=== PATIENT | male | born 1995 | race Caucasian/White ===

== ENCOUNTER 2024-01-05 12:28 | Outpatient (AMB) | payer OTHER, SELFPAY ==
--- NOTE | 2024-01-05 12:30 | MHC.PC.OV ---
Vital Signs 01/05/24 12:37 Height 5 ft 10 in Weight 197 lb BMI 28.3 BP 118/70 Blood Pressure Location Rt brachial Position Sitting Pulse 63 Pulse Source Pulse Oximeter Pulse Oximetry (%) 97 Oxygen Delivery Method Room Air Intake Visit Reasons: [employer] Request PE Intake Note: pt is here for new patient, requesting PE [facility] Vat Worker Required: No Accompanied by: Self / Same As Patient Allergies No Known Allergies [No Known Allergies*] Allergy (Verified 01/05/24 12:31) Tobacco use date assessed: 01/05/24 Dental Screening Dental Screen Date: 01/05/24 Did you have a dental visit in the last 12 months?: Yes Did you have a dental problem in the last 6 months where you did not have access to dental care?: No Was dental information given to patient?: Patient has dentist HPI [employer] Request PE HPI Details New pt is here for a PE. Will order labs. [facility] Surgical History No pertinent past surgical history Family History Mother No problems noted. Father No problems noted. Social History Housing: Condominium Alcohol intake: current Alcohol intake frequency: a few times a week Alcohol type: beer, wine and hard liquor Patient Tobacco Use Status: Current someday Tobacco user Cigarettes Per Day: 1 e-Cigarette/Vaping Use: Never Used service: No Current occupational status: employed Current occupation: lawn care Current occupational exposures/hazards: No Cognitive needs: No Hearing needs: No Vision needs: Yes Questionnaire PHQ-9 Over the last 2 weeks, how often have you been bothered by any of the following problems? 1. Little interest or pleasure in doing things: not at all 2. Feeling down, depressed, or hopeless: not at all 3. Trouble falling or staying asleep, or sleeping too much: not at all 4. Feeling tired or having little energy: not at all 5. Poor appetite or overeating: not at all 6. Feeling bad about yourself - or that you are a failure or have let yourself or your family down: not at all 7. Trouble concentrating on things, such as reading the newspaper or watching television: not at all 8. Moving or speaking so slowly that other people could have noticed. Or the opposite - being so fidgety or restless that you have been moving around a lot more than usual: not at all 9. Thoughts that you would be better off or of hurting yourself in some way: not at all Total score: 0 Depression Screening Interpretation: Negative Depression Screening Done: Yes 24874 - PHQ-9 Billing: Yes Source: Developed by Drs. Vasiliy Mcintosh, Dora Bhatia, Frantz Livingston and colleagues, with an educational souleymane from [employer]. Thrive Questionnaire Date Thrive assessed: 01/05/24 I am a: Patient What is your living situation today?: I have a steady place to live Within the past 12 months, did the food you bought not last and you didn't have the money to get more?: Never true Within the past 12 months, did you worry whether your food would run out before you got money to buy more?: Never true Do you have trouble paying for medicines?: No Do you have trouble getting transportation to medical appointments?: No Do you have trouble paying your heating and electricity bill?: No Do you have trouble taking care of your child, family member or friend?: No Do you have trouble with day-to-day activities such as bathing, preparing meals, shopping, managing finances, etc.?: No Are you currently unemployed and looking for a job?: No Are you interested in more education?: No Please select the resources that you would like help with: None Currently or been in a relationship where the following occur: No concerns reported THRIVE Score: 0 AUDIT C Alcohol Use Questionnaire (AUDIT-C) 1. How often do you have a drink containing alcohol?: 2-3 times a week 2. How many drinks containing alcohol do you have on a typical day when you are drinking?: 5 or 6 3. How often do you have six or more drinks on one occasion?: Weekly Total Score: 8 Score Reviewed/Action Taken: Yes SARA-7 AMB Questionnaire SARA-7 Date SARA - 7 assessed: 01/05/24 Feeling nervous, anxious, or on edge: 0 = Not at all Not being able to stop or control worryin = Not at all Worrying too much about different things: 0 = Not at all Trouble relaxin = Not at all Being so restless that it is hard to sit still: 0 = Not at all Becoming easily annoyed or irritable: 0 = Not at all Feeling afraid as if something awful might happen: 0 = Not at all Total SARA-7 score (0-4 normal; 5-9 mild; 10-14 moderate; 15-21 severe): 0 Source: Developed by Drs. Vasiliy Mcintosh, Dora Bhatia, Frantz Livingston and colleagues, with an educational souleymane from [employer]. SARA-7 Assessment Billing SARA-7 Assessment Tool: SARA-7 Assessment 88551 Review of Systems Const Denies chills and Denies fever(s) Eyes Denies blurry vision ENT Denies vertigo, Denies dizziness and Denies sore throat Card Denies chest pain at rest, Denies chest pain with activity, Denies diaphoresis, Denies dyspnea and Denies dyspnea on exertion Resp Denies cough, Denies dyspnea, Denies dyspnea on exertion and Denies wheezing GI Denies abdominal pain, Denies melena, Denies hematochezia, Denies constipation, Denies diarrhea and Denies loose stools Denies hematuria Musc Denies numbness and Denies tingling Skin/Breast Denies lesions Neuro Denies vertigo, Denies dizziness, Denies numbness and Denies tingling Psych Denies anxiety, Denies depression, Denies homicidal ideation, Denies suicidal ideation and Denies other (substance abuse) Aller/Immun Denies wheezing Physical exam (Primary Care) Vital Signs: Last Vital Signs Pulse 63 01/05/24 12:37 BP 118/70 01/05/24 12:37 Pulse Ox 97 01/05/24 12:37 Oxygen Delivery Method Room Air 01/05/24 12:37 BMI result Body Mass Index 28.3 Tobacco/Smoking Status: Tobacco use Status Tobacco use date assessed 01/05/24 01/05/24 12:32 Patient Tobacco Use Status Current someday Tobacco 01/05/24 12:40 e-Cigarette/Vaping Use Never Used 01/05/24 12:39 PHQ-9: PHQ-9 Score PHQ-9: Total score 0 01/05/24 12:32 Depression Screening Interpretation: Negative Thrive Assessment: Date of Thrive Assessment Date Thrive assessed 01/05/24 01/05/24 12:32 Currently or been in a relationship where the following occur: No concerns reported Const General: cooperative Nutritional Appearance: well nourished Orientation/consciousness: patient oriented x3 HENMT Head: Yes normal to inspection, Yes normocephalic and Yes atraumatic Ears: TM's normal bilaterally Eyes General: appearance normal, both eyes and all related structures Alignment and Position: alignment normal and position normal Neck Neck: Yes normal visual inspection and Yes no lymphadenopathy Thyroid: Thyroid normal Resp Effort & Inspection: normal respiratory effort Auscultation: clear to auscultation bilaterally Cardio Rate: regular rate Rhythm: regular rhythm Heart sounds: S1 normal heart sound present, S2 normal heart sound present and no murmurs GI Palpation (GI): Soft to palpation and nontender Auscultation: normal bowel sounds Male General Exam: Yes normal external exam Penis: normal penis Scrotum: scrotum normal, testes descended bilaterally and no inguinal hernias Testes: no testicular mass Skin Other: left upper back with small marble sized cyst, no TTP, no surrounding erythema Rashes: no rashes Neuro General: patient oriented x3, moves all extremities, no focal motor deficits and deep tendon reflexes 2+ bilaterally Romberg Test: Negative Psych Appearance: grossly normal Mental Status: mental status grossly normal Speech and movement: Normal speech and movement present Affect: normal affect Attitude: cooperative Thought process: Normal thought process present Thought content: Normal thought content present Insight: Good insight present (Psych) Judgement: Good judgement present (Psych) Assessment and Plan Assessment & Plan (1) Physical exam: Code(s): Z. - Encounter for general adult medical examination without abnormal findings Plan: Labs ordered Plan The patient agreed to the use of a forensic medical examiner for this encounter. Scribed for LINDA High by Amira Yu forensic medical examiner, on 01/05/2024 at 12:45 EST. Orders: Orders Complete Blood Count Auto Diff Today Z00. - Encounter for general adult medical examination without abnormal findings TSH reflex Free T4 Today Z00.00 - Encounter for general adult medical examination without abnormal findings Comprehensive [place]. Panel Fast Today Z. - Encounter for general adult medical examination without abnormal findings UA CC w/rflx Micro + Cult Today Z00.00 - Encounter for general adult medical examination without abnormal findings Lipid Panel Today Z00.00 - Encounter for general adult medical examination without abnormal findings Coding Level of Care Code New Pt Prev Care 18-39yr(04202 Diagnoses Physical exam Z00.00 Additional Codes SARA-7 Assessment Billing - SARA-7 Assessment Tool: SARA-7 Assessment 39355 ([id number])
[2024-01-05 12:37] VITALS: BP 118/70; PULSE 63; O2SAT 97; BMI 28.3
== END 2024-01-05 15:48 | disposition home or self-care (01) ==
PROVIDERS: PCP Nurse Practitioner Family; Visit Provider Nurse Practitioner Family
DX: Z00.00 Encounter for general adult medical examination without abnormal findings (principal)
CPT/HCPCS: 99385

== ENCOUNTER 2024-03-08 08:13 | Outpatient (AMB) | payer OTHER, SELFPAY ==
--- OUTSIDE RECORDS SUMMARY | 2024-03-08 08:16 | XMS_ITS | Continuity of Care Document ---
Author Organization [facility] ter Address [address] [place] [id number]- Care Team Providers Care Street Sweeper Name Role Phone Shania Nichols MD Primary Care Physician Encounter [facility] [place] [facility] [place] Date(s): 02/27/23 - 02/27/[address] [address]- Encounter Diagnosis Chest pain(Final) - 02/27/23 Discharge Disposition: A-D/C Home Attending Physician: Evelin An DO Admitting Physician: Evelin An DO Referring Physician: Not on Staff, Referring MD Allergies, Adverse Reactions, Alerts No Known Allergies Medications hydrOXYzine pamoate 25 mg oral capsule 1 capsule = 25 mg, By Mouth, 4 times a day, PRN for anxiety, May take 2 tablets if needed at a time., # 40 capsule, 0 Refills, Acute 03/06/23 13:15:00 EDT, 02/27/23 12:07:00 EDT, Capsule, [id number], Partial fill upon patient request if the pr... Start Date: 02/27/23 Stop Date: 03/06/23 Status: Ordered Vicodin 5/500 Tablet See Instructions, Scheduled / PRN, 12, tablet, 0, 0, 03/06/07 13:13:27, as needed for pain, Take One By Mouth Every 4-6 hours, Print KYALI Number, [facility] Start Date: 03/06/07 Status: Ordered Results Radiology Reports * Exam Date Time Procedure Performing Provider Status 02/27/23 9:23 AM Chest 2 Views Frontal and Lat Shasha Mahmood; Augie (Verified) Notes: (Chest 2 Views Frontal and Lat) Reason For Exam: Chest Pain;Other: RESULT: Chest 2 Views Frontal and Lat Chest 2 Views Frontal and Lat Hx of Present Illness: : pt with cp, lt arm pain, and dizziness x 1 wk severity changes ( slight nausea sob denies medical hx; Reason: Other:; Chest Pain; Clinical Question(s): Other: COMPARISON: Chest radiograph 02/12/2023 FINDINGS: LINES AND TUBES: None. LUNGS AND PLEURA: Clear lungs. Normal pulmonary vascularity. No pleural effusion. No pneumothorax. HEART, MEDIASTINUM AND RAVEN: Heart is normal in size. Normal mediastinal and hilar contour. BONES AND SOFT TISSUES: No acute abnormality. IMPRESSION: No radiographic evidence of an acute cardiopulmonary process. WSN: [id number] Ordering Physician: Juan Cortez Dictated By: Elvis Alas MD Dictated Date/Time: 02/27/23 9:26 am Reviewed By: Elvis Alas MD Signed By: Elvis Alas MD Signed Date/Time: 02/27/23 9:26 am Transcribed By: DORIAN Transcribed Date/Time: 02/27/23 9:25 am Vital Signs Most recent to oldest [Reference Range]: 1 2 Height 178 cm (02/27/23 12:29 PM) 178 cm (02/27/23 8:44 AM) Oxygen Saturation [94-100 %] 100 % (02/27/23 12:29 PM) 100 % (02/27/23 8:44 AM) Pulse Rate [55-90 bpm] 90 bpm (02/27/23 12:29 PM) 61 bpm (02/27/23 8:44 AM) Blood Pressure [90-138/55-84 mm Hg] 136/ 88mm Hg (02/27/23 12:29 PM) 144/81mm Hg *H* (02/27/23 8:44 AM) Respiratory Rate [16-30 br/min] 16 br/mi n (02/27/23 12:29 PM) 16 br/min (02/27/23 8:44 AM) Temperature [96.8-100.4 DegF] 97.8 DegF (02/27/23 8:44 AM) Mode of Delivery (Oxygen) Room air (02/27/23 12:29 PM) Room air (02/27/23 8:44 AM) Blood pressure sites Arm, right (02/27/23 8:44 AM) Temperature Route Oral (02/27/23 8:44 AM) Dry Weight 84 kg (02/27/23 12:29 PM) 84 kg (02/27/23 8:44 AM) EKG study * Event Display: ECG 12-Lead Authored Date: Please click on pdf link to open report * Event Display: ECG 12-Lead Authored Date: Ventricular Rate: 96 BPM Atrial Rate: 96 BPM P-R Interval: 126 ms QRS Duration: 82 ms Q-T Interval: 358 ms QTC Calculation(Bazett): 452 ms P [place]: 62 degrees R [place]: 59 degrees T [place]: 55 degrees Normal sinus rhythm with sinus arrhythmia Normal ECG When compared with ECG of 12-FEB-2023 09:56, No significant change was found Confirmed by SHANIA URBAN MD ([id number]) on 02/27/2023 11:52:14 AM [place]: SHANIA URBAN MD Note * Evelin An DO: PERFORM Event Display: Patient Education Leaflets Authored Date: Hydroxyzine Oral Tablet ?? [id number] Hydroxyzine Oral Tablet Uses This medicine is used for the following purposes: ??? agitation ??? anxiety ??? itching ?? Instructions This medicine may be taken with or without food. Store at room temperature away from heat, light, and moisture. Do not keep in the bathroom. Drug interactions can change how medicines work or increase risk for side effects. Tell your healthcare providers about all medicines taken. Include prescription and rmbt-fhu-pbdptns medicines, vitamins, and herbal medicines. Speak with your doctor or pharmacist before starting or stopping any medicine. Tell your doctor if symptoms do not get better or if they get worse. ?? Cautions Tell your doctor and pharmacist if you ever had an allergic reaction to a medicine. Do not use the medication any more than instructed. Your ability to stay alert or to react quickly may be impaired by this medicine. Do not drive or operate machinery until you know how this medicine will affect you. Please check with your doctor before drinking alcohol while on this medicine. Tell the doctor or pharmacist if you are , planning to be , or . Do not share this medicine with anyone who has not been prescribed this medicine. ?? Side Effects The following is a list of some common side effects from this medicine. Please speak with your doctor about what you should do if you experience these or other side effects. ??? constipation ??? dizziness or drowsiness ??? dry mouth Call your doctor or get medical help right away if you notice any of these more serious side effects: ??? confusion ??? fainting ??? hallucinations (unusual thoughts, seeing or hearing things that are not real) ??? fast or irregular heart beats ??? mood changes ??? seizures ??? shakiness ??? difficulty or discomfort urinating ??? blurring or changes of vision A few people may have an allergic reaction to this medicine. Symptoms can include difficulty breathing, skin rash, itching, swelling, or severe dizziness. If you notice any of these symptoms, seek medical help quickly. ?? Extra Please speak with your doctor, nurse, or pharmacist if you have any questions about this medicine. ?? [email or web address] IMPORTANT NOTE: This document tells you briefly how to take your medicine, but it does not tell youall there is to know about it. Your doctor or pharmacist may give you other documents about your medicine. Please talk to them if you have any questions. Always follow their advice. There is a more complete description of this medicine available in [place]. Scan this code on your smartphone or tablet or use the web address below. You can also ask your pharmacist for a printout. If you have any questions, please ask your pharmacist. The display and use of this drug information is subject to Terms of Use. Copyright(c) 2022 [employer]. ?? [employer]. All rights reserved. This information is not intended as a substitute for professional medical care. Always follow your healthcare professional's instructions. ?? * Evelin An DO: PERFORM Event Display: Patient Education Leaflets Authored Date: [id number] Anxiety??Reaction ?? [id number] Anxiety??Reaction Anxiety is the feeling we all get when we think something bad might happen. It is a normal responseto stress. It most often causes only a mild reaction. But it can interfere with daily life when anxiety is more severe. In some cases, you may not know what you???re anxious about. Anxiety seems to have both mental and physical triggers. You may have stress from home and family. Or work and social relationships. Anxiety tends to run in families. This may mean it???s linked to genes. During an anxiety reaction, you may feel: ??? Helpless ??? Nervous ??? Depressed ??? Grouchy Your body may show signs of anxiety in many ways. You may have: ??? Dry mouth ??? Shakiness ??? Dizziness ??? Weakness ??? Trouble breathing ??? Fast breathing ???Chest pressure ??? Sweating ??? Headache ??? Nausea ??? Diarrhea ??? Tiredness ??? Inability to sleep ??? Sexual problems Home care Try to find those things that set off anxiety in your life. They may not be obvious. They may include: ??? Daily hassles of life. This can include traffic jams, missed appointments, or car troubles. ???Major life changes. This means both good changes, such as a new baby or job promotion. This can also mean tough life changes, such as loss of a job or loss of a loved one. ??? Overload. This means feeling that you have too many responsibilities. And that you can't take care of all of them. ??? Feeling helpless. You may feel you don???t have any control or choices. You may feel that your problems can't be solved. Notice how your body reacts to stress. This will help you take action before the stress sets off anxiety. When you can, make changes to reduce the sources of your stress. But stress in life often can't be prevented. It is important to learn how to manage stress to reduce anxiety. There are many proven methods that will reduce your anxiety. These include: ??? Exercise ??? Good nutrition ??? Getting enough sleep ??? Relaxation methods ??? Breathing exercises ??? Visualization ??? Biofeedback ??? Meditation ??? Counseling ??? Medicine For more information about this, talk with your healthcare provider. Or check online or at your local library or bookstore. You'll find many books and audiobooks on this subject. ?? Follow-up care If you feel your anxiety is not getting better with self-help, call your healthcare provider. Or make an appointment with a counselor. You may need short-term counseling or medicine to help you manage anxiety. ?? Call 911 Call 911 if any of the following occur: ??? Trouble breathing ??? Confusion ??? Drowsiness or trouble waking up ??? Fainting ??? Rapid heart rate ??? Seizure ??? New chest pain that becomes more severe, lasts longer, or spreads into your shoulder, arm, neck, jaw, or back Call or text [phone] if you have thoughts of harming yourself or others. You will be connected to trained crisis counselors at the National Suicide Prevention Lifeline. An online chat option is also available at www.suicidepreventionlifeline.org. You can also call Lifeline at 827-526-LTRN (775-884-4145). Lifeline is free and available 14/12. ?? When to get medical advice Call your healthcare provider right away if any of the following occur: ??? Symptoms that don't improve or get worse, such as feelings of hopelessness or overwhelming sadness ??? Severe headache not eased by rest and mild pain medicine The National Suicide Prevention Lifeline is available at 943-130-HBMB (649-765-0211). The Lifeline is available 14/12 and provides free and confidential support. The Lifeline also has an online chat at www.suicideSKURA.org. ?? Last Reviewed Date: 2021 ?? 9298-5984 [employer]. All rights reserved. This information is not intended as a substitute for professional medical care. Always follow your healthcare professional's instructions. ?? Patient Care team information Care Team Personnel Name: Shania Nichols MD Position: [facility] Physician - Pediatrics Member Role: PCP Address: Address: [address] [place] [address] [place] [address]- Name: *[facility], ED Attending Position: [facility] ED Attendings Patient Name: Evelin An DO Position: [facility] Resident Member Role: Admitting Physician Address: Address: [address] [place] [address] [place] [address]- [place] Name: Lexii Khan RN Position: [facility] ED RN W/OE and Tasks Member Role: Patient Care Provider Care Team Related Persons Name: CALLIE HOGAN Address: [address] [address] Name: CALLIE SAUNDERS Address: [address] [place] [address]
--- OUTSIDE RECORDS SUMMARY | 2024-03-08 08:16 | XMS_ITS | Continuity of Care Document ---
Author Organization [facility] ter Address [address] [place] [id number]- Care Team Providers Care Databases Computer Consultant Name Role Phone Not on Staff, PCP Primary Care Physician Unavail able Encounter [facility] Date(s): 02/12/23 - 02/12/[address] [id number]- Discharge Disposition: A-D/C Home Attending Physician: Debra Puri DO Admitting Physician: Debra Puri DO Referring Physician: Not on Staff, Referring MD Allergies, Adverse Reactions, Alerts No Known Allergies Medications Vicodin 5/500 Tablet See Instructions, Scheduled / PRN, 12, tablet, 0, 0, 03/06/07 13:13:27, as needed for pain, Take One By Mouth Every 4-6 hours, Print KAYLI Number, ADS [facility] Start Date: 03/06/07 Status: Ordered Results Radiology Reports * Exam Date Time Procedure Performing Provider Status 02/12/23 2:04 PM Chest 2 Views Frontal and Lat Reyes Wade; Auth (Verified) Notes: (Chest 2 Views Frontal and Lat) Reason For Exam: palpitations;Other: RESULT: Chest 2 Views Frontal and Lat Chest 2 Views Frontal and Lat Hx of Present Illness: states increasing intermittent lightheadedness, bilateral arm tingling, palpitations, and increasing stress at work. Speaking in full sentences, appears in NAD.; Reason: Other:; palpitations; Clinical Question(s): CHF COMPARISON: None. FINDINGS: LINES AND TUBES: None. LUNGS AND PLEURA: Clear lungs. Normal pulmonary vascularity. No pleural effusion. No pneumothorax. HEART, MEDIASTINUM AND RAVEN: Heart is normal in size. Normal mediastinal and hilar contour. BONES AND SOFT TISSUES: No acute abnormality. IMPRESSION: No acute abnormality. WSN: [id number] Ordering Physician: Janna Patel Dictated By: Nilesh Nicole MD Dictated Date/Time: 02/12/23 2:06 pm Reviewed By: Nilesh Nicole MD Signed By: Nilesh Nicole MD Signed Date/Time: 02/12/23 2:06 pm Transcribed By: DORIAN Transcribed Date/Time: 02/12/23 2:06 pm Vital Signs Most recent to oldest [Reference Range]: 1 2 3 Height 179 cm (02/12/23 12:56 PM) 179 cm (02/12/23 12:56 PM) 179 cm (02/12/23 9:48 AM) Weight 84 kg (02/12/23 12:56 PM) 84 kg (02/12/23 12:56 PM) 84 kg (02/12/23 9:48 AM) Oxygen Saturation [94-100 %] 100 % (02/12/23 2:58 PM) 100 % (02/12/23 2:51 PM) 100 % (02/12/23 12:56 PM) Pulse Rate [55-90 bpm] 77 bpm (02/12/23 2:58 PM) 76 bpm (02/12/23 2:51 PM) 80 bpm (02/12/23 12:56 PM) Body Mass Index [18.5-24.99 kg/m2] 26.22 kg/m2 *H* (02/12/23 12:56 PM) 26.22 kg/m2 *H* (02/12/23 9:48 AM) Blood Pressure [90-138/55-84 mm Hg] 138/72mm Hg (02/12/23 2:58 PM) 143/83mm Hg *H* (02/12/23 12:56 PM) 171/91mm Hg *H* (02/12/23 9:48 AM) Respiratory Rate [16-30 br/min] 18 br/min (02/12/23 2:58 PM) 18 br/min (02/12/23 2:51 PM) 18 br/min (02/12/23 12:56 PM) Temperature [96.8-100.4 DegF] 98.1 DegF (02/12/23 9:48 AM) Mode of Delivery (Oxygen) Room air (02/12/23 2:58 PM) Room air (02/12/23 2:51 PM) Room air (02/12/23 12:56 PM) Blood pressure sites Arm, right (02/12/23 2:58 PM) Arm, right (02/12/23 12:56 PM) Arm, right (02/12/23 9:48 AM) Temperature Route Oral (02/12/23 9:48 AM) Dry Weight 84 kg (02/12/23 12:56 PM) 84 kg (02/12/23 12:56 PM) 84 kg (02/12/23 9:48 AM) Weight Obtained Via Patient/family state d (02/12/23 9:48 AM) Dry Weight Obtained Via Patient/family s tated (02/12/23 9:48 AM) EKG study * Event Display: ECG 12-Lead Authored Date: [id number] Please click on pdf link to open report * Event Display: ECG 12-Lead Authored Date: [id number] Ventricular Rate: 105 BPM Atrial Rate: 105 BPM P-R Interval: 120 ms QRS Duration: 82 ms Q-T Interval: 324 ms QTC Calculation(Bazett): 428 ms P [place]: 64 degrees R [place]: 36 degrees T [place]: 32 degrees Sinus tachycardia Otherwise normal ECG No previous ECGs available Confirmed by GOGO FRY ([id number]) on 02/12/2023 2:11:27 PM [place]: GOGO FRY Note * Janna Tran: PERFORM Event Display: Patient Education Leaflets Authored Date: [id number] Heart Palpitations ?? [id number] Heart Palpitations Palpitations are the feeling that your heart is beating hard, fast, or irregular. Some describe it as pounding, flip-flopping in the chest, or skipped beats. Palpitations may occur in someone with heart disease. But they can also occur in a healthy person. Heart-related causes: ??? Heart rhythm problem (arrhythmia) ??? Heart valve disease ??? Disease of the heart muscle (cardiomyopathy) ??? Coronary artery disease ??? High blood pressure Vuy-boifu-aygnlbq causes: ??? Certain medicines such as asthma inhalers and decongestants ??? Some herbal supplements, energydrinks and pills, and weight loss pills ??? Illegal stimulant drugs such as cocaine, crank, methamphetamine, PCP, and ecstasy ??? Caffeine, alcohol, and tobacco ??? Health conditions such as thyroid disease, anemia, anxiety, and panic disorder Sometimes the cause can't be found. Home care Follow these home care tips: ??? Don't use too much caffeine, alcohol, or tobacco, or any stimulantdrugs. ??? Tell your doctor about any prescription or wrxw-khi-sdmorye or herbal medicines you take. ?? Follow-up care ??? Follow up with your doctor, or as advised. ?? Call 911 This is the fastest and safest way to get to the emergency department. The paramedics can also start treatment on the way to the hospital, if needed. Don't wait until your symptoms are severe to call 911. These are reasons to call 911: ??? Chest pain ??? Shortness of breath ??? Feeling lightheaded, faint, or dizzy, or losing consciousness ??? Veryirregular heartbeat ??? Rapid heartbeat that makes you uncomfortable ??? Slower than usual heart rate along with symptoms ??? Chest pain with weakness, dizziness,??heavy sweating, nausea, or vomiting??? Extreme drowsiness, confusion, or weakness ??? Weakness of an arm or leg, or on one side of theface ??? Trouble with speech or vision ?? When to seek medical advice Call your healthcare provider right away if you have palpitations that last longer than normal, or are different from your past palpitations. ?? Last Reviewed Date: 2021 ?? [id number] [employer]. All rights reserved. This information is not intended as a substitute for professional medical care. Always follow your healthcare professional's instructions. ?? Patient Care team information Care Team Personnel Name: Not on Staff, PCP Position: [facility] Physician (General Medicine) Member Role: PCP Name: Janna Tran Position: [facility] Associate Professional Member Role: ED Physician Clinical Account Executive Address: Address: [address] [place] [address] Name: Debra Puri DO Position: [facility] ED Medicine MD Member Role: Admitting Physician Address: Address: [address] [place] [address] Name: Stefan Melgoza Position: S ED TA [facility] Member Role: Pugger Helper Name: Varsha Carrillo RN Position: [facility] ED RN W/OE and Tasks Member Role: Patient Care Provider Care Team Related Persons Name: CALLIE HOGAN Address: [address] [place] [address]
[2024-03-08 08:29] VITALS: BP 110/86; PULSE 71; O2SAT 98; BMI 28.1
--- NOTE | 2024-03-08 08:29 | MHC.OFFWIV ---
Intake Vital Signs 03/08/24 08:29 Height 5 ft 10 in Weight 196 lb BMI 28.1 BP 110/86 Blood Pressure Location Lt brachial Position Sitting Pulse 71 Pulse Source Pulse Oximeter Pulse Oximetry (%) 98 Oxygen Delivery Method Room Air Intake Visit Reasons: EP Back Injury Intake Note: Patient here for lower back pain after playing softball which has been going on for about 3 weeks. Patient Tobacco Use Status: Current someday Tobacco user Allergies No Known Allergies [No Known Allergies*] Allergy (Verified 03/08/24 08:34) Do you need a note to return to daycare/school/sports/work: No HPI HPI Comments History of Present Illness Details Patient is a 29-year-old male complaining of 3 weeks of low back pain. He thinks it initially started when he was moving some furniture with a friend and then the next day played softball. He denies any specific injury but thinks the additive effects may have strained his back too much. He states the pain is in his low back on both sides but then does radiate down both legs, worse on the left. He states there is a sharp shooting pain that radiates down his left leg when he moves a certain way. He states the pain is worse when he has been sitting for long periods. He has been taking Lucio's back pills with mild relief. He tells me he was feeling a little bit better and then when to go leaned over to tie his shoe and it all started over again. He has also been doing some stretches he found on you tube. He denies any loss of control of his bladder or bowels. [facility] Surgical History No pertinent past surgical history Family History Mother No problems noted. Father No problems noted. Social History Housing: Condominium Alcohol intake: current Alcohol intake frequency: a few times a week Alcohol type: beer, wine and hard liquor Patient Tobacco Use Status: Current someday Tobacco user Cigarettes Per Day: 1 e-Cigarette/Vaping Use: Never Used service: No Current occupational status: employed Current occupation: lawn care Current occupational exposures/hazards: No Cognitive needs: No Hearing needs: No Vision needs: Yes Review of Systems Const All systems reviewed & are unremarkable except as noted in HPI and below Physical Exam Vital Signs: Last Vital Signs Pulse 71 03/08/24 08:29 BP 110/86 03/08/24 08:29 Pulse Ox 98 03/08/24 08:29 Oxygen Delivery Method Room Air 03/08/24 08:29 BMI result Body Mass Index 28.1 Const General: cooperative, healthy appearing and comfortable Orientation/consciousness: patient oriented x3 HEENT Head: Yes normal to inspection and Yes normocephalic General nose exam: Normal external nose present Face and sinus: Yes normal facial exam Eyes General: appearance normal, both eyes and all related structures Resp Effort & Inspection: normal respiratory effort and able to speak in complete sentences Back/Spine/Pelvis Cervical Spine: cervical ROM normal and No Cervical spine tenderness Thoracic/Lumbar Spine: thoracic and lumbar spine normal to inspection, pain with thoraco-lumbar ROM, paraspinal muscle tenderness bilaterally in the upper lumbar and in the mid lumbar, No thoracic spinal tenderness and No lumbar spinal tenderness Neuro General: patient oriented x3 Extrem Other: Straight leg raise test negative on right; Straight leg raise test POSITIVE on left; Reflexes normal ankle and knee bilaterally; motor strength normal bilaterally Assessment & Plan Assessment & Plan (1) Low back pain with left-sided sciatica: Code(s): M54.42 - Lumbago with sciatica, left side Qualifiers: Chronicity: acute Back pain laterality: left Qualified Code(s): M54.42 - Lumbago with sciatica, left side Plan: No indication for an x-ray. We will start with a small burst of prednisone and a muscle relaxer and recommended he take Aleve around the clock for the next few days. Recommended he rest his back for a few days before he starts stretching and if his pain continues, to follow up with his PCP for possible imaging or physical therapy. Plan See above Medications: New prednisone 20 mg PO DAILY 5 tabs 0RF cyclobenzaprine 5 mg PO Q8H PRN 10 tabs 0RF Muscle Spasm Coding Level of Care Code Est Pt Level 3 (93816) Diagnoses Acute left-sided low back pain with left-sided sciatica M54.42 Chronicity: acute Back pain laterality: left
== END 2024-03-08 09:09 | disposition home or self-care (01) ==
PROVIDERS: PCP Nurse Practitioner Family; Visit Provider Physician Assistant
DX: M54.42 Lumbago with sciatica, left side (principal)

== ENCOUNTER → 2024-03-08 08:13 | Outpatient (BNVA) | payer OTHER, SELFPAY | PROVIDERS: PCP Nurse Practitioner Family; Visit Provider Physician Assistant ==

== ENCOUNTER 2024-03-08 09:11 | Outpatient (REF) | payer OTHER, SELFPAY ==
[2024-03-08 10:14] LABS: MANUAL DIFF FLAG NO
[2024-03-08 10:20] LABS: Basophils Percent Auto 0.4 % (0-2); Eosinophils Absolute Auto 0.1 X10*3/uL (0.0-0.4); Eosinophils Percent Auto 2.1 % (0-4); Hematocrit 46.3 % (42.0-52.0); Hemoglobin 15.9 g/dl (14.0-18.0); Imm Gran Abs Auto 0.03 X10*3/uL (0.00-0.03); Imm Gran Pct Auto 0.4 % (0.0-0.4); Lymphocytes Absolute Auto 1.6 X10*3/uL (1.2-4.9); Lymphocytes Percent Auto 23.1 % (20-40); Mean Corpuscular HGB Conc 34.3 g/dl (31.0-36.0); Mean Corpuscular Hemoglobin 29.8 pg (27.0-33.0); Mean Corpuscular Volume 86.9 fL (80.0-98.0); Mean Platelet Volume 9.7 fL (9.4-12.4); Monocytes Absolute Auto 0.9 X10*3/uL (0.1-1.2); Monocytes Percent Auto 13.6 % (2-11); Neutrophils Absolute Auto 4.1 x10*3/uL (2.0-8.3); Neutrophils Percent Auto 60.4 % (45-73); Platelet Count 433 X10*3/uL (160-400); Red Blood Count 5.33 X10*6/uL (4.60-5.80); Red Cell Distribution Width 12.2 % (11.0-16.0); White Blood Count 6.8 X10*3/uL (4.8-10.8)
[2024-03-08 10:43] LABS: Appearance Urine Clear; Color Urine Yellow; Glucose Urine UA Negative (Negative); Leukocyte Esterase Urine Negative (Negative); Nitrite Urine Negative (Negative); PH 6.5 (5.0-9.0); Urine Blood Negative (Negative); Urine Ketones Negative (Negative); Urine Protein Negative (Neg-Trace)
[2024-03-08 11:14] LABS: Alanine Aminotransferase 43 U/L (0-40); Albumin Level 4.7 g/dL (3.5-5.0); Alkaline Phosphatase 87 U/L (39-117); Anion Gap 12 (12-20); Aspartate Amino Transferase 31 U/L (5-37); Bilirubin Total 0.6 mg/dL (0.0-1.0); Blood Urea Nitrogen 14 mg/dL (9-16); Calcium 10.1 mg/dL (8.4-10.2); Carbon Dioxide 29 mmol/L (22-29); Chloride 103 mmol/L (96-108); Cholesterol 230 mg/dL (<200); Estimated Glomerular Filt Rate > 60; Glucose Fasting 88 mg/dL (60-99); HDL Cholesterol 53 mg/dL (>40); LDL Cholesterol Calculated 149 mg/dL (<100); Potassium 4.1 mmol/L (3.3-5.1); Sodium 140 mmol/L (135-145); Total Protein 7.8 g/dL (6.5-8.0); Triglycerides 140 mg/dL (<150)
[2024-03-08 11:40] LABS: TSH reflex Free T4 1.66 uIU/mL (0.32-4.0)
== END 2024-03-08 09:12 | disposition home or self-care (01) ==
LOC: HO.HMGCLDS 09:11
PROVIDERS: PCP Nurse Practitioner Family; Visit Provider Nurse Practitioner Family
DX: Z00.00 Encounter for general adult medical examination without abnormal findings (principal)
CPT/HCPCS: 36415; 80053; 80061; 81003; 84443; 85025

== ENCOUNTER 2024-03-15 08:23 | Outpatient (REF) | payer OTHER, SELFPAY | END 2024-03-15 08:24 | disposition home or self-care (01) | LOC: HO.HMGCX 08:23 | PROVIDERS: PCP Nurse Practitioner Family; Visit Provider Nurse Practitioner Family | DX: R79.89 Other specified abnormal findings of blood chemistry (principal); R74.8 Abnormal levels of other serum enzymes | CPT/HCPCS: 76700 ==

== ENCOUNTER 2024-04-10 13:58 | Outpatient (AMB) | payer OTHER, SELFPAY ==
[2024-04-10 14:06] VITALS: BP 112/80; PULSE 70; O2SAT 98; BMI 28.0
--- NOTE | 2024-04-10 14:06 | A.OFFPC_ITS ---
Vital Signs 04/10/24 14:06 Height 5 ft 10 in Weight 195 lb BMI 28.0 BP 112/80 Blood Pressure Location Rt brachial Position Sitting Pulse 70 Pulse Source Pulse Oximeter Pulse Oximetry (%) 98 Intake Visit Reasons: Regular visit Intake Note: pt is here for follow up Allergies No Known Allergies [No Known Allergies*] Allergy (Verified 04/10/24 14:08) Medication List - Last Reconciled 04/10/24 by LINDA De Los Santos No Known Home Meds Tobacco use date assessed: 01/05/24 Dental Screening Dental Screen Date: 01/05/24 HPI Regular visit HPI Details Pt has a hx of elevated liver enzymes/dyslipidemia. He had an abdominal US which has not been read yet. Will repeat labs (hepatitis screen has been ordered). Educated pt on proper diet and exercise. Denies fever, chills, and abdominal pain. [facility] Surgical History No pertinent past surgical history Family History Mother No problems noted. Father No problems noted. Social History Housing: Condominium Alcohol intake: current Alcohol intake frequency: a few times a week Alcohol type: beer, wine and hard liquor Patient Tobacco Use Status: Current someday Tobacco user Cigarettes Per Day: 1 e-Cigarette/Vaping Use: Never Used service: No Current occupational status: employed Current occupation: lawn care Current occupational exposures/hazards: No Cognitive needs: No Hearing needs: No Vision needs: Yes Questionnaire Thrive Questionnaire Date Thrive assessed: 01/05/24 I am a: Patient What is your living situation today?: I have a steady place to live Within the past 12 months, did the food you bought not last and you didn't have the money to get more?: Never true Within the past 12 months, did you worry whether your food would run out before you got money to buy more?: Never true Do you have trouble paying for medicines?: No Do you have trouble getting transportation to medical appointments?: No Do you have trouble paying your heating and electricity bill?: No Do you have trouble taking care of your child, family member or friend?: No Do you have trouble with day-to-day activities such as bathing, preparing meals, shopping, managing finances, etc.?: No Are you currently unemployed and looking for a job?: No Are you interested in more education?: No Please select the resources that you would like help with: None Currently or been in a relationship where the following occur: No concerns reported THRIVE Score: 0 SARA-7 AMB Questionnaire SARA-7 Date SARA - 7 assessed: 01/05/24 Source: Developed by Drs. Vasiliy Mcintosh, Dora Bhatia, Frantz Livingston and colleagues, with an educational souleymane from [employer]. Review of Systems Const Reports as per HPI Physical exam (Primary Care) Vital Signs: Last Vital Signs Pulse 70 04/10/24 14:06 BP 112/80 04/10/24 14:06 Pulse Ox 98 04/10/24 14:06 BMI result Body Mass Index 28.0 Tobacco/Smoking Status: Tobacco use Status Tobacco use date assessed 01/05/24 04/10/24 14:10 Patient Tobacco Use Status Current someday Tobacco 04/10/24 14:10 e-Cigarette/Vaping Use Never Used 04/10/24 14:10 Thrive Assessment: Date of Thrive Assessment Date Thrive assessed 01/05/24 04/10/24 14:10 Currently or been in a relationship where the following occur: No concerns reported Const General: cooperative Orientation/consciousness: patient oriented x3 Resp Effort & Inspection: normal respiratory effort Auscultation: clear to auscultation bilaterally Cardio Rate: regular rate Rhythm: regular rhythm Heart sounds: S1 normal heart sound present and S2 normal heart sound present GI Palpation (GI): Soft to palpation and nontender Neuro General: patient oriented x3 Psych Appearance: grossly normal Mental Status: mental status grossly normal Speech and movement: Normal speech and movement present Affect: normal affect Attitude: cooperative Thought process: Normal thought process present Thought content: Normal thought content present Insight: Good insight present (Psych) Judgement: Good judgement present (Psych) Coding Level of Care Code Est Pt Level 3 (43875) Diagnoses Elevated liver enzymes R74.8 Dyslipidemia E78.5 Assessment & Plan Assessment & Plan (1) Elevated liver enzymes: Code(s): R74.8 - Abnormal levels of other serum enzymes Category: Medical Plan: Repeat labs ordered (2) Dyslipidemia: Code(s): E78.5 - Hyperlipidemia, unspecified Category: Medical Plan: educated on proper diet, will cont to monitor Plan The patient agreed to the use of a director medical economics for this encounter. Scribed for LINDA High by Amira Yu director medical economics, on 04/10/2024 at 14:20 EST. Orders: Orders Comprehensive Met. Panel Today R74.8 - Abnormal levels of other serum enzymes
== END 2024-04-10 16:41 | disposition home or self-care (01) ==
PROVIDERS: PCP Nurse Practitioner Family; Visit Provider Nurse Practitioner Family
DX: R74.8 Abnormal levels of other serum enzymes (principal); E78.5 Hyperlipidemia, unspecified